=== PATIENT | male | born 1955 | race Two or more races ===

== ENCOUNTER 2020-03-17 17:56 | Inpatient (IN) | payer BC, OTHER ==
[~2020-03-17] VITALS: Ht 167.6 cm; Wt 75.3 kg
--- NOTE | 2020-03-17 18:08 | NUR ---
ERP DR. GRIFFITHS IN TRIAGE TO ASSESS PT. NO CODE NUERO TIME OF ONSET WAS ANYWHERE FROM MIDNIGHT TODAY TO 1400 TODAY.
[2020-03-17 18:34] LABS: BASOPHILS # (AUTO) 0.03 x10^3/uL (0-0.1); BASOPHILS % (AUTO) 0 % (0-1); EOSINOPHILS # (AUTO) 0.13 x10^3/uL (0-0.4); EOSINOPHILS % (AUTO) 1 % (1-7); LYMPHOCYTES # (AUTO) 2.96 x10^3/uL (1-3.4); LYMPHOCYTES % (AUTO) 32 % (22-44); MD NO; MEAN CORPUSCULAR HEMOGLOBIN 29.1 pg (27.5-34.5); MEAN CORPUSCULAR HGB CONC 33.4 g/dL (33.2-36.2); MEAN PLATELET VOLUME 9.5 fL (7.4-10.4); MONOCYTES # (AUTO) 0.76 x10^3/uL (0.2-0.8); MONOCYTES % (AUTO) 8 % (2-9); NEUTROPHILS # (AUTO) 5.47 x10^3/uL (1.8-6.8); NEUTROPHILS % (AUTO) 59 % (42-75); PLATELET COUNT 267 x10^3/uL (130-400); RED BLOOD COUNT 5.53 x10^6/uL (4.38-5.82); RED CELL DISTRIBUTION WIDTH 13.1 % (9.4-14.8)
[2020-03-17 18:41] LABS: ANION GAP 8 mmol/L (5-15); CALCIUM 9.5 mg/dL (8.5-10.1); CHLORIDE 105 mmol/L (98-107)
[2020-03-17 18:45] LABS: TROPONIN I < 0.015 ng/mL (0.000-0.045)
[2020-03-17] MEDS ORDERED: ASPIRIN 325 MG TABLET PO ONE (20:30)
[2020-03-17] MEDS ORDERED: ASPIRIN 325 MG TABLET ONE (20:54)
--- NOTE | 2020-03-17 20:58 | NUR ---
BREAK RN: PT CURRENTLY RESTING ON [employer]. NO ACUTE DISTRESS NOTED. PT PASSED SWALLOW EVAL AND WAS THEN MEDICATED ORDERED WITH ASA. PT AO X 4. SKIN PWD. RESP EVEN AND UNLABORED. PT FOLLOWS ALL COMMANDS. FACE SYMMETRICAL. SPEECH CLEAR. CARGO SURVEYOR EQUAL BILATERALLY. SENSATION INTACT. PT ABLE TO MOVE ALL EXTREMITIES W/O DIFFICULTY. PT ON CONT BP AND SPO2 MONITORS. CALL LIGHT WITHIN REACH.
[2020-03-17] MEDS ORDERED: ACETAMINOPHEN 650 MG/20.3 ML UDC PO PRN (21:00)
[2020-03-17] MEDS ORDERED: LABETALOL 5MG/ML, 20ML IV PRN (21:00)
[2020-03-17] MEDS ORDERED: ONDANSETRON 2MG/ML, 2ML IVPush PRN (21:00)
[2020-03-17] MEDS: INSULIN LISPRO 100 UNITS/ML, PEN SQ-INSULIN SCH (21:00)
[2020-03-17] MEDS: ENOXAPARIN 40 MG/0.4 ML SQ SCH (21:00)
--- NOTE | 2020-03-17 21:50 | NUR ---
CT DELAY, PT IN MRI.
--- NOTE | 2020-03-17 22:04 | NUR ---
PT IN MRI AT THIS TIME.
--- NOTE | 2020-03-17 22:15 | NUR ---
PT RETURNED FROM MRI. ERP AT BEDSIDE FOR UPDATE ON PLAN OF CARE. PT VERBALIZES UNDERSTANDING. DENIES ANY FURTHER NEEDS OR CONCERNS AT THIS TIME. CALL LIGHT IN REACH.
[2020-03-17] MEDS ORDERED: OMNIPAQUE 350 MG/ML, 75ML BOTTLE ONE (22:19)
--- NOTE | 2020-03-17 22:32 | NUR ---
REPORT TO MITZI KIM. PT READY FOR TRANSPORT AT THIS TIME.
[2020-03-17 23:30] VITALS: BP 137/94
[2020-03-18] VITALS (9 sets, daily range): BP systolic 122–160; BP diastolic 82–108
[2020-03-18] MEDS: ATORVASTATIN 40 MG TABLET PO SCH ×2 (00:07→21:31)
[2020-03-18 02:59] LABS: AMPHETAMINE SCREEN, URINE Negative (Negative); BARBITURATE SCREEN, URINE Negative (Negative); BENZODIAZEPINE SCREEN, URINE Negative (Negative); CANNABINOID SCREEN, URINE Negative (Negative); COCAINE SCREEN, URINE Negative (Negative); METHADONE SCREEN, URINE Negative (Negative); OPIATE SCREEN, URINE Negative (Negative)
[2020-03-18 05:34] LABS: CHOL/HDL RATIO 5.3; LDL/HDL RATIO 3.5 (0.5-3.0)
[2020-03-18] MEDS: ASPIRIN 81 MG TABLET CHEW PO/NG SCH (08:38)
[2020-03-18] MEDS ORDERED: GLIP5TAB22 PO (08:57)
[2020-03-18] MEDS ORDERED: SITA1TAB PO (08:57)
[2020-03-18] MEDS: INSULIN LISPRO 100 UNITS/ML, PEN SQ-INSULIN SCH ×7 (09:07→21:32)
[2020-03-18 09:26] LABS: HCT (SEDRATE) 47.6 % (39.2-51.8)
[2020-03-18 09:41] LABS: ANION GAP 7 mmol/L (5-15); C-REACTIVE PROTEIN, QUANT 0.04 mg/dL (0.02-0.49); CALCIUM 8.5 mg/dL (8.5-10.1); CHLORIDE 104 mmol/L (98-107)
[2020-03-18 09:52] LABS: CREATININE 1.02 mg/dL (0.7-1.3)
[2020-03-18] MEDS ORDERED: JANUVIA 50 MG PO SCH (10:30)
[2020-03-18] MEDS: LINAGLIPTIN 5 MG TAB PO SCH (11:22)
[2020-03-18] MEDS: metFORMIN 500 MG TABLET PO SCH (19:30)
[2020-03-18] MEDS: METOPROLOL SUCCINATE 25 MG TAB.ER.24H PO SCH (21:31)
[2020-03-18] MEDS: ENOXAPARIN 40 MG/0.4 ML SQ SCH (21:33)
[2020-03-19 00:28] VITALS: BP 126/82
[2020-03-19] MEDS: INSULIN LISPRO 100 UNITS/ML, PEN SQ-INSULIN SCH ×8 (07:00→20:13)
[2020-03-19 07:09] VITALS: BP 141/84
[2020-03-19] MEDS: metFORMIN 500 MG TABLET PO SCH ×2 (08:00→17:00)
[2020-03-19 08:26] LABS: ANION GAP 6 mmol/L (5-15); CALCIUM 8.6 mg/dL (8.5-10.1); CHLORIDE 105 mmol/L (98-107); CREATININE 1.17 mg/dL (0.7-1.3)
[2020-03-19 08:29] LABS: CREATINE KINASE, TOTAL 72 U/L (39-308)
[2020-03-19] MEDS: ASPIRIN 81 MG TABLET CHEW PO/NG SCH (08:29)
[2020-03-19] MEDS: LINAGLIPTIN 5 MG TAB PO SCH (08:29)
[2020-03-19] MEDS: METOPROLOL SUCCINATE 25 MG TAB.ER.24H PO SCH (13:24)
[2020-03-19 13:40] VITALS: BP 142/94
[2020-03-19 18:40] VITALS: BP 116/73
[2020-03-19] MEDS: ATORVASTATIN 40 MG TABLET PO SCH (20:14)
[2020-03-19] MEDS: ENOXAPARIN 40 MG/0.4 ML SQ SCH (20:15)
[2020-03-20 00:18] VITALS: BP 130/82
[2020-03-20 04:00] VITALS: BP 121/78
[2020-03-20] MEDS: METOPROLOL SUCCINATE 25 MG TAB.ER.24H PO SCH (05:38)
[2020-03-20] MEDS: INSULIN LISPRO 100 UNITS/ML, PEN SQ-INSULIN SCH ×8 (07:00→20:40)
[2020-03-20] MEDS: CLOPIDOGREL 75 MG TABLET PO SCH (07:38)
[2020-03-20] MEDS: LINAGLIPTIN 5 MG TAB PO SCH (07:38)
[2020-03-20] MEDS: ASPIRIN 81 MG TABLET CHEW PO/NG SCH (07:38)
[2020-03-20] MEDS: metFORMIN 500 MG TABLET PO SCH ×2 (07:38→17:35)
[2020-03-20 08:07] VITALS: BP 115/71
[2020-03-20 12:19] VITALS: BP 152/99
[2020-03-20 18:32] VITALS: BP 124/85
[2020-03-20] MEDS: ATORVASTATIN 40 MG TABLET PO SCH (20:45)
[2020-03-20] MEDS: ENOXAPARIN 40 MG/0.4 ML SQ SCH (20:45)
[2020-03-21 01:00] VITALS: BP 139/92
[2020-03-21 06:13] VITALS: BP 136/84
[2020-03-21] MEDS: METOPROLOL SUCCINATE 25 MG TAB.ER.24H PO SCH (06:15)
[2020-03-21] MEDS: INSULIN LISPRO 100 UNITS/ML, PEN SQ-INSULIN SCH ×4 (07:00→11:58)
[2020-03-21] MEDS: ASPIRIN 81 MG TABLET CHEW PO/NG SCH (07:32)
[2020-03-21] MEDS: LINAGLIPTIN 5 MG TAB PO SCH (07:32)
[2020-03-21] MEDS: metFORMIN 500 MG TABLET PO SCH (07:32)
[2020-03-21] MEDS: CLOPIDOGREL 75 MG TABLET PO SCH (07:32)
[2020-03-21] MEDS ORDERED: CLOP75TA PO (12:15)
[2020-03-21] MEDS ORDERED: CARV12.52 PO (12:15)
[2020-03-21] MEDS ORDERED: ASPI-515 PO/NG (12:15)
[2020-03-21] MEDS ORDERED: METF500T PO (12:15)
[2020-03-21] MEDS ORDERED: AMLO-150 PO (12:15)
[2020-03-21] MEDS ORDERED: LINA5TAB PO (12:15)
[2020-03-21] MEDS ORDERED: ATOR40TA78 PO (12:15)
[2020-03-21] MEDS ORDERED: AMLODIPINE 5 MG TABLET PO SCH (12:30)
[2020-03-21 13:08] VITALS: BP 146/87
[2020-03-21] MEDS ORDERED: CARVEDILOL 12.5 MG TABLET PO SCH (18:00)
[2020-03-22] MEDS ORDERED: ASPIRIN 81 MG TABLET CHEW PO/NG SCH (09:00)
== END 2020-03-21 14:48 | DRG 65 ==
LOC: ED 21:45 → EDIP 23:16 → 4WST 23:18 → DCLOUNGE 03-21 14:35
PROVIDERS: ADMIT Hospitalist; ATTEND Internal Medicine
DX: I63.511 Cerebral infarction due to unspecified occlusion or stenosis of right middle cerebral artery (principal); G81.94 Hemiplegia, unspecified affecting left nondominant side; I10 Essential (primary) hypertension; R00.0 Tachycardia, unspecified; E78.5 Hyperlipidemia, unspecified; E11.65 Type 2 diabetes mellitus with hyperglycemia; Z88.8 Allergy status to other drugs, medicaments and biological substances; Z82.3 Family history of stroke; Z79.82 Long term (current) use of aspirin; Z79.899 Other long term (current) drug therapy; Z79.02 Long term (current) use of antithrombotics/antiplatelets; Z79.84 Long term (current) use of oral hypoglycemic drugs; Z86.73 Personal history of transient ischemic attack (TIA), and cerebral infarction without residual deficits
CPT/HCPCS: 36415; 70450; 70496; 70498; 70551; 80048; 80061; 80307; 82550; 82962; 83036; 83735; 84443; 84484; 85025; 85651; 86140; 93005; 93306; 99285; G0378; J1650; Q9967; 92523-GN; J1815